=== PATIENT | male | born 1955 | race Two or more races ===

== ENCOUNTER 2016-10-10 10:49 | Emergency (ER) | payer OTHER, MEDICAID ==
[~2016-10-10] VITALS: Ht 175.3 cm; Wt 88.5 kg
[~2016-10-10 10:49] MED LIST: ALL100T PO; ASPI-498 OR; CARV3.1213 OR; LIS10T PO; METF-316 PO; SIMV-8 PO; WARF3TAB22 PO
[2016-10-10 11:28] LABS: Basophils # (auto) 0 uL; Basophils % (auto) 0.2 % (0.0-2.0); DEFINITIVE VIEW TRANSMISSION; Eosinophils # (auto) 0.1 uL; Eosinophils % (auto) 1.9 % (0.0-7.0); Hematocrit 41.9 % (41.0-53.0); Hemoglobin 13.5 g/dL (13.5-17.5); Lymphocytes % (auto) 15.4 % (10.0-50.0); Mean Corpuscular Hemoglobin 24.5 pg (28.0-32.0); Mean Corpuscular Hgb Conc. 32.3 g/dL (32.0-36.0); Mean Corpuscular Volume 75.9 fL (80.0-100.0); Mean Platelet Volume 10.2 fL (7.4-10.4); Monocytes # (auto) 0.5 uL; Monocytes % (auto) 8.3 % (0.0-12.0); Neutrophils # (auto) 4.6 uL; Neutrophils % (auto) 74.2 % (37.0-80.0); Platelet Count (auto) 163 10^3/uL (140-450); Red Cell Distribution Width 15.6 % (11.6-16.0); White Blood Cell 6.2 10^3/uL (4.4-10.8)
[2016-10-10 12:06] LABS: Albumin 3.6 g/dL (3.4-5.0); BUN/Creatinine Ratio 14.3; Bilirubin, Total 0.3 mg/dL (0.2-1.0); Calcium 8.7 mg/dL (8.5-10.1); Potassium 4.6 mmol/L (3.5-5.1); Total Protein 7.5 g/dL (6.4-8.2)
[2016-10-10] MEDS ORDERED: CEPHALEXIN 250 MG CAP PO ONE (15:45)
[2016-10-10] MEDS ORDERED: HYDROcodone-ACET 5/325MG TAB PO ONE (15:45)
[2016-10-10 16:19] VITALS: BP 171/96
== END 2016-10-10 17:10 | disposition home or self-care (01) ==
LOC: EDBD 10:49 → ER 11:03
DX: D69.6 Thrombocytopenia, unspecified (principal); H60.91 Unspecified otitis externa, right ear; H66.91 Otitis media, unspecified, right ear; E11.9 Type 2 diabetes mellitus without complications; M10.9 Gout, unspecified; I10 Essential (primary) hypertension; Z90.49 Acquired absence of other specified parts of digestive tract; Z90.89 Acquired absence of other organs; Z86.73 Personal history of transient ischemic attack (TIA), and cerebral infarction without residual deficits; Z95.1 Presence of aortocoronary bypass graft
CPT/HCPCS: 36415; 70450; 80053; 82962; 84484; 85025; 93005

== ENCOUNTER 2025-02-11 06:32 | Emergency (ER) | payer OTHER ==
[~2025-02-11] VITALS: Ht 165.1 cm; Wt 84.2 kg
[~2025-02-11 06:32] MED LIST changes: +CARV-214 OR; -CARV3.1213 OR; -METF-316 PO; +METF-372 PO; -SIMV-8 PO; +SIMV20TA20 PO; +WARF-111 PO; -WARF3TAB22 PO
--- NOTE | 2025-02-11 07:41 | ED.PDOC ---
HPI (NEURO) HPI Comments 69M presents to the ER w/ his cane and w/ prior MHx of CVA-right sided weakness, HTN, High Lipids, CAD,DM, Gout;SHx of CABG, Valve Replacement, Appendectomy,cholecystectomy and the c/c of LOPEZ. Pt reports on having sudden LOPEZ at 0200 this morning located on the forehead. Pt noted that he did take plavix yesterday evening. Pt has a pain type of a 10/10. Denies chills, fever, N/V/D, SOB, CP. Denies any other associated symptom's, modifiers, or recent injuries or sick contact at this time. Chief Complaint: Headache Time Seen by MD: 07:00 Primary Care Provider: UNKNOWN Reviewed Notes: Nurses Notes, Medications, Allergies Information Source: Patient Mode of Arrival: Ambulatory Severity: Moderate Dizziness/Weakness Severity: Unable to do activities Headache Severity: Moderate Timing: Hours Duration: Since onset, Hours Prehospital treatment: None Headache Quality: Aching Headache Location: Frontal Onset: At rest Circumstances: Spontaneous Symptoms: None Before: Normal During: LOC (Sleeping) After: Headache History of: CVA, DM, Hypertension Associated Signs and Symptoms: Headache Past Medical History PAST MEDICAL HISTORY: CAD, CVA (with right sided weakness), DM, Gout, High Lipids, HTN Surgical History: Appendectomy, CABG, Cholecystectomy Surgical History (Other): Valve Replacement Family History Family History: Reviewed,noncontributory to illness, Unknown Social History Smoker: Non-Smoker Alcohol: Denies ETOH Use Drugs: Denies Drug Use Lives In: Home Constitutional: denies: chills, diaphoresis, fatigue, fever, malaise, sweats, weakness, others EENTM: denies: blurred vision, double vision, ear bleeding, ear discharge, ear drainage, ear pain, ear ringing, eye pain, eye redness, hearing loss, mouth pain, mouth swelling, nasal discharge, nose bleeding, nose congestion, nose pain, photophobia, tearing, throat pain, throat swelling, voice changes, others Respiratory: denies: cough, hemoptysis, orthopnea, SOB at rest, shortness of breath, SOB with excertion, stridor, wheezing, others Cardiovascular: denies: chest pain, dizzy spells, diaphoresis, Dyspnea on exertion, edema, irregular heart beat, left arm pain, lightheadedness, palpitations, PND, syncope, others Gastrointestinal: denies: abdomen distended, abdominal pain, blood streaked bowels, constipated, diarrhea, dysphagia, difficulty swallowing, hematemesis, melena, nausea, poor appetite, poor fluid intake, rectal bleeding, rectal pain, vomiting, others Genitourinary: denies: burning, dysuria, flank pain, frequency, hematuria, incontinence, penile discharge, penile sore, pain, testicle pain, testicle swelling, urgency, others Neurological: reports: headache; denies: dizziness, fainting, left sided numbness, left sided weakness, numbness, paresthesia, pre-existing deficit, right sided numbness, right sided weakness, seizure, speech problems, tingling, tremors, weakness, others Musculoskeletal: denies: back pain, gout, joint pain, joint swelling, muscle pain, muscle stiffness, neck pain, others Integumetry: denies: bruises, change in color, change in hair/nails, dryness, laceration, lesions, lumps, rash, wounds, others Allergic/Immunocompromised: denies: Difficulty Healing, Frequent Infections, Hives, Itching, others Hematologic/Lymphatic: denies: anemia, blood clots, easy bleeding, easy bruising, swollen glands, others Endocrine: denies: excessive hunger, excessive sweating, excessive thirst, excessive urination, flushing, intolerance to cold, intolerance to heat, unexplained weight gain, unexplained weight loss, others Psychiatric: denies: anxiety, bipolar disorder, depression, hopeless, panic disorder, schizophrenia, sleepless, suicidal, others All Other Systems: Reviewed and Negative Physical Exam General Appearance: Mild Distress, Normal HEENT: Normal ENT Inspection, PERRL/EOMI, TMs Normal, Other (Patient with a facial asymmetry and right with hemiparesis) Neck: Full Range of Motion, Non-Tender, Normal, Normal Inspection Respiratory: Chest Non-Tender, Lungs Clear, No Accessory Muscle Use, No Respiratory Distress, Normal Breath Sounds Cardiovascular: No Edema, No JVD, No Murmur, No Gallop, Normal Peripheral Pulses, Regular Rate/Rhythm Breast Exam: Deferred Gastrointestinal: No Organomegaly, Non Tender, No Pulsatile Mass, Normal Bowel Sounds, Soft Genitalia: Deferred Pelvic: Deferred Rectal: Deferred Extremities: No calf tenderness, Normal capillary refill, Non-tender, No pedal edema, Other (Patient with a right hemiparesis) Musculoskeletal : Apperance: Normal Neurologic: Alert, Facial Droop, Motor Weakness, Normal Affect, Normal Mood, No Sensory Deficits, Sensory Deficit, Speech Problem Cerebellar Function: NOT DONE Reflexes: NOT DONE Skin: Dry, Normal Color, Warm Peripheral Pulses: 1+ carotid (R), 1+ carotid (L) Lymphatic: No Adenopathy Was a procedure done? Was a procedure done?: No Differential Diagnosis (SZ) Seizure: Hyperventilation, CVA/TIA, Hypocalcemia, Hypoglycemia, Hyponatremia, Mass Lesion CVA: Electrolyte Imbalance, Encephalopathy, Hypoglycemia, Mass Lesion General Weakness: Anemia, CVA, Dehydration, Dysrhythmia, Electrolyte imbalance, Hypotension, Hypovolemia, Renal failure Headache: Migraine, Mass Lesion, Post-Traumatic X-Ray, Labs, Meds, VS Vital Signs Date Time Temp Pulse Resp B/P (MAP) Pulse Ox O2 Delivery O2 Flow Rate FiO2 02/11/25 08:51 63 02/11/25 08:37 95 Room Air* 0 21 02/11/25 08:30 68 18 95 Room Air 02/11/25 08:30 98.3 68 18 124/80 (95) 95 98.3 02/11/25 06:40 98.5 60 16 135/82 (99) 99 98.5 Lab Test 02/11/25 07:50 Range/Units White Blood Count 5.3 4.4-10.8 10^3/uL Red Blood Count 5.49 4.5-5.90 10^6/uL Hemoglobin 15.4 13.5-17.5 g/dL Hematocrit 44.8 41.0-53.0 % Mean Corpuscular Volume 81.6 80.0-100.0 fL Mean Corpuscular Hemoglobin 28.1 28.0-32.0 pg Mean Corpuscular Hemoglobin Concent 34.4 32.0-36.0 g/dL Red Cell Distribution Width 14.1 11.8-14.3 % Platelet Count 132 L 140-450 10^3/uL Mean Platelet Volume 9.7 6.9-10.8 fL Neutrophils (%) (Auto) 81.7 H 37.0-80.0 % Lymphocytes (%) (Auto) 10.1 10.0-50.0 % Monocytes (%) (Auto) 7.4 0.0-12.0 % Eosinophils (%) (Auto) 0.7 0.0-7.0 % Basophils (%) (Auto) 0.1 0.0-2.0 % Neutrophils # (Auto) 4.3 1.6-8.6 10 ^3/uL Lymphocytes # (Auto) 0.5 0.4-5.4 10 ^3/uL Monocytes # (Auto) 0.4 0-1.3 10 ^3/uL Eosinophils # (Auto) 0 0-0.8 10 ^3/uL Basophils # (Auto) 0 0-0.2 10 ^3/uL Nucleated Red Blood Cells 0.1 % Sodium Level 132 L 136-145 mmol/L Potassium Level 4.8 3.5-5.1 mmol/L Chloride Level 103 98-107 mmol/L Carbon Dioxide Level 22 20-31 mmol/L Anion Gap 7 5-15 Blood Urea Nitrogen 11 9-23 mg/dL Creatinine 1.13 0.700-1.30 mg/dL Glomerular Filtration Rate Calc 71 >90 mL/min BUN/Creatinine Ratio 9.7 L 10.0-20.0 Serum Glucose 117 H 74-106 mg/dL Calcium Level 9.5 8.7-10.4 mg/dL Magnesium Level 1.7 1.6-2.6 mg/dL Total Bilirubin 0.6 0.2-1.0 mg/dL Aspartate Amino Transferase (AST) 15 13-40 U/L Alanine Aminotransferase (ALT) 16 7-40 U/L Alkaline Phosphatase 94 46-116 U/L Troponin I High Sensitivity 10 </=54 ng/L Total Protein 6.8 5.7-8.2 g/dL Albumin 4.6 3.2-4.8 g/dL Current Medications Medications (Trade) Dose Ordered Sig/Madeline Route Start Time Stop Time Status Last Admin Sodium Chloride 1,000 ml @ 150 mls/hr Q6H40M ONCE IV 02/11/25 07:15 02/11/25 13:54 02/11/25 08:46 Metoclopramide HCl (Reglan Injection) 10 mg ONCE ONCE IV 02/11/25 07:15 02/11/25 07:17 DC 02/11/25 08:36 Ketorolac Tromethamine (Toradol Injection) 30 mg ONCE ONCE IV 02/11/25 07:15 02/11/25 07:17 DC 02/11/25 08:36 X-Ray, Labs, Meds, VS Comment Course in the emergency department eventful patient came in because of frontal headache for the past few hours the chest x-ray shows cardiomegaly EKG shows normal sinus rhythm at 73 with a APCs brain atrophy and small-vessel ischemic changes CBC 5300 with 81.7% neutrophils and normal H&H CMP negative Magnesium 1.7 Troponin 10 Patient will be discharged home to follow up with his PCP Time of 1ST Reevaluation: 07:30 Reevaluation 1ST: Unchanged Time of 2ND Reevaluation: 09:55 Reevaluation 2ND: Improved Patient Education/Counseling: Diagnosis, Treatment, Prognosis Family Education/Counseling: No Family Present Departure 1 Departure Time of Disposition: 09:56 Impression: Primary Impression: Migraine headache without aura Qualified Codes: G43.009 - Migraine without aura, not intractable, without status migrainosus Additional Impressions: History of CVA with residual deficit History of heart valve replacement Cerebral atrophy Disposition: 01 HOME / SELF CARE / HOMELESS Condition: Fair Additional Instructions: Need to follow up with your PCP e-Prescriptions Metoclopramide Hcl (Reglan) 10 Mg Tab 10 MG PO BIDAC for 10 Days, #20 TAB Prov: AMBROCIO NORTH MD 02/11/25 Naproxen (Naproxen) 375 Mg Tab 375 MG PO TID for 5 Days, #15 TAB Prov: AMBROCIO NORTH MD 02/11/25 Discharged With: Self Critical Care Note Critical Care Time?: No Stability Stability form required: No Heart Score Heart Score: Heart Score Response (Comments) Value History N/A 0 EKG Normal 0 Age >65 2 Risk Factors >3 or Hx ASHD 2 Troponin Normal limit 0 Total 4 I personally scribed for AMBROCIO NORTH MD ([email or web address]) on 02/11/25 at 07:41. Electronically submitted by Timothy Castellanos ([email or web address]). AMBROCIO NORTH MD February 11, 2025 07:41
--- NOTE | 2025-02-11 08:04 | DVH ---
EXAM: CT Head Without Intravenous Contrast CLINICAL INDICATION: Frontal headache status post CVA TECHNIQUE: Axial computed tomography images of the head/brain without intravenous contrast. This CT exam was performed using one or more of the following dose reduction techniques: automated exposure control, adjustment of the mA and/or kV according to patient size, and/or use of iterative reconstru ction technique. CONTRAST: COMPARISON: None FINDINGS: BRAIN AND EXTRA-AXIAL SPACES: The cerebral and cerebellar sulci are prominent consistent with brain atrophy. Areas of decreased attenuation in the deep cerebral white matter are consistent with small vessel ischemic/degenerative changes. No acute intracranial hemorrhage, midline shift or mass effec t. If symptoms persist, further evaluation with MRI is recommended. BONES/JOINTS: Unremarkable. No acute fracture. SOFT TISSUES: Unremarkable. SINUSES: Unremarkable as visualized. No acute sinusitis. MASTOID AIR CELLS: Unremarkable as visualized. No mastoid effusion. OTHER FINDINGS: . . IMPRESSION: 1. Generalized brain atrophy. 2. Small vessel ischemic/degenerative changes. 3. No acute intracranial hemorrhage, midline shift or mass effect. If symptoms persist, further eval uation with MRI is recommended.
--- NOTE | 2025-02-11 08:06 | DVH ---
EXAM: XR Chest, 2 Views CLINICAL INDICATION: Hypertension diabetes valve replacement TECHNIQUE: Frontal and lateral views of the chest. COMPARISON: None FINDINGS: LUNGS AND PLEURAL SPACES: Unremarkable. No consolidation. No pneumothorax. HEART: Cardiomegaly without overt failure. MEDIASTINUM: Unremarkable. Normal mediastinal contour. BONES/JOINTS: Unremarkable. No acute fracture. OTHER FINDINGS: . IMPRESSION: Cardiomegaly without overt failure.
[2025-02-11 08:17] LABS: Alanine Aminotransferase 16 U/L (7-40); Albumin 4.6 g/dL (3.2-4.8); Alkaline Phosphatase 94 U/L (46-116); Anion Gap 7 (5-15); Aspartate Aminotransferase 15 U/L (13-40); BUN/Creatinine Ratio 9.7 (10.0-20.0); Bilirubin, Total 0.6 mg/dL (0.2-1.0); Blood Urea Nitrogen 11 mg/dL (9-23); Calcium 9.5 mg/dL (8.7-10.4); Carbon Dioxide 22 mmol/L (20-31); Chloride 103 mmol/L (98-107); Glucose 117 mg/dL (74-106); Magnesium 1.7 mg/dL (1.6-2.6); Potassium 4.8 mmol/L (3.5-5.1); Sodium 132 mmol/L (136-145); Total Protein 6.8 g/dL (5.7-8.2)
[2025-02-11 08:23] LABS: Basophils # (auto) 0 10 ^3/uL (0-0.2); Basophils % (auto) 0.1 % (0.0-2.0); Eosinophils # (auto) 0 10 ^3/uL (0-0.8); Eosinophils % (auto) 0.7 % (0.0-7.0); Hematocrit 44.8 % (41.0-53.0); Hemoglobin 15.4 g/dL (13.5-17.5); Lymphocytes # (auto) 0.5 10 ^3/uL (0.4-5.4); Lymphocytes % (auto) 10.1 % (10.0-50.0); Mean Corpuscular Hemoglobin 28.1 pg (28.0-32.0); Mean Corpuscular Hgb Conc. 34.4 g/dL (32.0-36.0); Mean Corpuscular Volume 81.6 fL (80.0-100.0); Monocytes # (auto) 0.4 10 ^3/uL (0-1.3); Monocytes % (auto) 7.4 % (0.0-12.0); Neutrophils # (auto) 4.3 10 ^3/uL (1.6-8.6); Neutrophils % (auto) 81.7 % (37.0-80.0); Nucleated Red Blood Cells % 0.1 %; Platelet Count (auto) 132 10^3/uL (140-450); Red Blood Cells 5.49 10^6/uL (4.5-5.90); Red Cell Distribution Width 14.1 % (11.8-14.3); White Blood Cell 5.3 10^3/uL (4.4-10.8)
[2025-02-11] MEDS: METOCLOPRAMIDE HCL 5MG/ml INJ 2ml VIAL IV ONE (08:36)
[2025-02-11] MEDS: KETOROLAC TROMETH 30 MG/ML 1ML VIAL IV ONE (08:36)
[2025-02-11 08:37] VITALS: O2SAT 95
[2025-02-11] MEDS: SODIUM CHLORIDE 0.9% 1,000 ML IV ONE (08:46)
[2025-02-11] MEDS ORDERED: METO-281 PO (10:05)
[2025-02-11] MEDS ORDERED: NAPR-957 PO (10:05)
[2025-02-11 11:09] VITALS: BP 124/69; PULSE 57; RESP 15; TEMP 98; O2SAT 96
--- NOTE | 2025-02-12 10:35 | ECG ---
[facility] Test Date: 2025-02-11 Test Time: 08:49:31 Pat Name: ESTELA PORTILLO Department: ED Room: Gender: M [employer] In[employer]: TAMMY : 1955 Requested By: AMBROCIO NORTH Order Number: [id number] Reading MD: Jonathan Arce Measurements Intervals [place] Rate: 63 P: 28 TX: 170 QRS: -14 QRSD: 89 T: 70 QT: 403 QTc: 413 Interpretive Statements Sinus rhythm Atrial premature complexes Minimal ST elevation, anterior leads Electronically Signed On 02-12-2025 22:31:22 PDT by Jonathan Arce Please click the below link to view image of tracing.
== END 2025-02-11 11:12 | disposition home or self-care (01) ==
LOC: ER 06:35
DX: G43.009 Migraine without aura, not intractable, without status migrainosus (principal); G31.9 Degenerative disease of nervous system, unspecified; I25.10 Atherosclerotic heart disease of native coronary artery without angina pectoris; E11.9 Type 2 diabetes mellitus without complications; I10 Essential (primary) hypertension; E78.5 Hyperlipidemia, unspecified; Z95.1 Presence of aortocoronary bypass graft; Z95.2 Presence of prosthetic heart valve; Z90.49 Acquired absence of other specified parts of digestive tract; Z98.890 Other specified postprocedural states
CPT/HCPCS: 36415; 70450; 71046; 80053; 83735; 84484; 85025; 93005; 96361; 96374; 96375; 99285; J1885; J2765; J7030